=== PATIENT | female | born 1985 | race Caucasian/White ===

== ENCOUNTER 2020-05-26 07:43 | Emergency (ER) | payer OTHER ==
[~2020-05-26] VITALS: Ht 165.1 cm; Wt 56.7 kg
[~2020-05-26 07:43] MED LIST: ALEVE220 MG PO; AMOXICILLIN 50500 M1 PO; APAP/CODEINE ELI5 M1 OR; COLESTID1 GM PO; FLEXERIL PO; IBUPROFEN 600600 M1; LEVSIN PO; LOTRONEX0.5 MG PO; METHADOSE10 MG PO; METHADOSE40 M1 PO; NAPROSYN500 MG PO; NOHOMEMEDICATIONS; NORCO 5-325 TA1 EACH PO; PENICILLIN V P500 MG PO; PRENATAL MULTI1 EAC2 PO; PROTONIX40 M2 PO; TAMIFLU75 MG PO; TORADOL 10 MG T10 MG PO; TRAMADOL 50 MG50 MG PO; ULTRAM 50MG TAB50 MG PO; XANAX XR1 MG PO; ZANTAC 150MG T150 M1 PO; ZANTAC 150MG T150 MG PO; ZOFRAN ODT4 MG PO
[2020-05-26 09:40] LABS: ABSOLUTE NEUTROPHILS 3.6 thou/uL (1.4-8.2); BASOPHILS 0.4 % (0.0-2.0); EOSINOPHILS 0.4 % (0.0-3.0); HEMATOCRIT 36.2 % (37.0-47.0); HEMOGLOBIN 12.5 gm/dL (12.0-15.0); LYMPHOCYTES 4.7 % (24.0-44.0); MCH 31.4 pg (26.0-34.0); MCHC 34.5 g/dL (28.0-37.0); MCV 91.1 fL (80.0-100.0); MONOCYTES 0.6 % (1.0-8.0); PLATELET COUNT 196 thou/uL (150-400); POLYS 93.9 % (36.0-66.0); RBC 3.98 mil/uL (4.20-5.00); RDW 13.6 % (10.5-14.5); WBC 3.9 thou/uL (4.0-11.0)
[2020-05-26 09:56] LABS: URINE BLOOD 2+ (Negative); URINE COLOR YELLOW; URINE GLUCOSE-RANDOM* NEGATIVE (Negative); URINE KETONES NEGATIVE (Negative); URINE PROTEIN (DIPSTICK) 2+ (Negative); URINE SPECIFIC GRAVITY >= 1.030 (1.005-1.035); URINE UROBILINOGEN 0.2 E.U./dl (0.2-1.0)
[2020-05-26 09:57] LABS: URINE CLARITY CLOUDY; URINE LEUKOCYTES-REFLEX 1+ (Negative); URINE NITRITE-REFLEX POSITIVE (Negative)
[2020-05-26 09:59] LABS: ICTOTEST (BILI CONFIRMATORY) Negative (Negative); URINE BILIRUBIN NEGATIVE (Negative)
[2020-05-26 09:59] LABS: CALCIUM 8.2 mg/dL (8.5-10.1); CREATININE 0.9 mg/dL (0.6-1.0); POTASSIUM 3.1 mmol/L (3.5-5.1)
[2020-05-26 10:07] LABS: ALBUMIN 3.2 g/dL (3.4-5.0); TOTAL BILIRUBIN 0.6 mg/dL (0.2-1.0); TOTAL PROTEIN 6.4 g/dL (6.4-8.2)
[2020-05-26 10:21] LABS: CASTS None Seen /LPF (None Seen); MUCUS 4-6 Moderate strn/LPF (None Seen); SQUAMOUS >10 Many /LPF (0-3); URINE WBC-REFLEX >25 Many /HPF (0-5)
[2020-05-26 10:22] LABS: AMORPHOUS URATES Few /LPF (None Seen); BACTERIA-REFLEX >30 Many /HPF (None Seen); URINE RBC 0-2 Rare /HPF (0-2)
--- NOTE | 2020-05-26 13:35 | EKG ---
[facility] [place] [address] ELECTROCARDIOGRAM REPORT Name: KALIN CARTWRIGHT Room #: [facility].#: [id number] Admission: 05/26/20 Attend Phys: Discharge: Date of : 85 Report #: [id number] THIS REPORT FOR: cc: FAM - No family physician/PCP FAM - No family physician/PCP Segun Vazquez MD ~ THIS REPORT FOR: //name// [facility] ED Test Date: 2020-05-26 Test Time: 07:44:09 Pat Name: KALIN CARTWRIGHT Department: Room: Gender: Crossing [place]: [facility] : 1985 Requested By: Rodrigo Buchanan Order Number: [id number] MD: Segun Vazquez Measurements Intervals [place] Rate: 102 P: 68 [place]: 119 QRS: 67 QRSD: 91 T: -40 QT: 345 QTc: 450 Interpretive Statements Sinus tachycardia Borderline T abnormalities, inferior leads Compared to ECG 10/16/2008 17:57:44 T-wave abnormality now present Electronically Signed On 05-26-2020 13:35:28 CDT by Segun Vazquez [email or web address] <ELECTRONICALLY SIGNED> By: Segun Vazquez MD 05/26/20 1335 0744 [id number] Segun Vazquez MD /DELIA
[2020-05-26] MEDS ORDERED: KEFLEX500 M1 PO (15:18)
[2020-05-26 15:45] VITALS: BP 106/51
== END 2020-05-26 15:45 | disposition home or self-care (01) ==
LOC: ER 07:43
PROVIDERS: Emergency Medicine
DX: N39.0 Urinary tract infection, site not specified (principal); N89.8 Other specified noninflammatory disorders of vagina; F17.210 Nicotine dependence, cigarettes, uncomplicated; Z90.49 Acquired absence of other specified parts of digestive tract; Z59.0 Homelessness; Z20.828 Contact with and (suspected) exposure to other viral communicable diseases

== ENCOUNTER 2021-01-24 01:04 | Emergency (ER) | payer OTHER ==
[~2021-01-24] VITALS: Ht 165.1 cm; Wt 68.0 kg
[~2021-01-24 01:04] MED LIST changes: +KEFLEX500 M1 PO
[2021-01-24 01:07] VITALS: BP 150/88
[2021-01-24 02:13] LABS: URINE BILIRUBIN NEGATIVE (Negative); URINE BLOOD NEGATIVE (Negative); URINE CLARITY CLEAR; URINE COLOR YELLOW; URINE GLUCOSE-RANDOM* NEGATIVE (Negative); URINE KETONES NEGATIVE (Negative); URINE LEUKOCYTES-REFLEX NEGATIVE (Negative); URINE NITRITE-REFLEX NEGATIVE (Negative); URINE PROTEIN (DIPSTICK) TRACE (Negative); URINE SPECIFIC GRAVITY >= 1.030 (1.005-1.035); URINE UROBILINOGEN 0.2 E.U./dl (0.2-1.0)
[2021-01-24] MEDS ORDERED: DOXYCYCLINE 10100 MG PO (02:30)
[2021-01-24] MEDS ORDERED: FLAGYL500 M1 PO (02:30)
[2021-01-25 01:06] LABS: HIV ANTIBODY Non Reactive (Non Reactive)
[2021-01-25] MEDS ORDERED: FLAGYL500 M1 PO (08:00)
[2021-01-25] MEDS ORDERED: DOXYCYCLINE 10100 MG PO (08:00)
--- NOTE | 2021-01-25 20:08 | NUR ---
ATTEMPTED TO CALL PATIENT (KALIN CARTWRIGHT) [phone]. PATIENT HAS A VOICEMAIL THAT HAS NOT BEEN SET UP AND IN ADDITION THAT MAILBOX IS FULL. CALLED SISTER, HOWARD CHAY, . LEFT MESSAGE FOR HER TO HAVE HER SISTER CALL ME BACK IN REGARDS TO TEST RESULTS
[2021-01-26 21:06] LABS: SYPHILIS AB Non Reactive (Non Reactive)
== END 2021-01-24 03:24 | disposition home or self-care (01) ==
LOC: ER 01:04
PROVIDERS: Emergency Medicine
DX: A64 Unspecified sexually transmitted disease (principal); N76.0 Acute vaginitis; B96.89 Other specified bacterial agents as the cause of diseases classified elsewhere; F17.210 Nicotine dependence, cigarettes, uncomplicated; Z90.49 Acquired absence of other specified parts of digestive tract; Z79.899 Other long term (current) drug therapy

== ENCOUNTER 2021-07-14 20:06 | Emergency (ER) | payer OTHER ==
[~2021-07-14] VITALS: Ht 165.1 cm; Wt 72.6 kg
[~2021-07-14 20:06] MED LIST changes: +DOXYCYCLINE 10100 MG PO; +FLAGYL500 M1 PO
[2021-07-14 20:12] VITALS: BP 174/84
[2021-07-14 20:28] LABS: URINE BILIRUBIN NEGATIVE (Negative); URINE BLOOD NEGATIVE (Negative); URINE CLARITY CLEAR; URINE COLOR YELLOW; URINE GLUCOSE-RANDOM* NEGATIVE (Negative); URINE KETONES NEGATIVE (Negative); URINE LEUKOCYTES-REFLEX NEGATIVE (Negative); URINE NITRITE-REFLEX NEGATIVE (Negative); URINE PROTEIN (DIPSTICK) NEGATIVE (Negative); URINE SPECIFIC GRAVITY >= 1.030 (1.005-1.035); URINE UROBILINOGEN 0.2 E.U./dl (0.2-1.0)
[2021-07-14 20:37] LABS: AMP/METHAMP POSITIVE (Negative); BARBITURATES Negative (Negative); BENZODIAZEPINES Negative (Negative); COCAINE Negative (Negative); METHADONE Negative (Negative); OPIATES Negative (Negative); PCP Negative (Negative)
[2021-07-14] MEDS ORDERED: DOXYCYCLINE 10100 MG PO (21:11)
== END 2021-07-14 22:29 | disposition home or self-care (01) ==
LOC: ER 20:06
PROVIDERS: Emergency Medicine
DX: M75.52 Bursitis of left shoulder (principal); Z20.2 Contact with and (suspected) exposure to infections with a predominantly sexual mode of transmission; F17.210 Nicotine dependence, cigarettes, uncomplicated; Z90.89 Acquired absence of other organs; Z98.890 Other specified postprocedural states; Z79.899 Other long term (current) drug therapy; Z79.891 Long term (current) use of opiate analgesic